=== PATIENT | female | born 1980 | race Caucasian/White ===

== ENCOUNTER 2021-07-09 06:44 | Day surgery (SDC) | payer MEDICAID, SELFPAY ==
[~2021-07-09] VITALS: Ht 160 cm; Wt 61.2 kg
[2021-07-09 07:34] LABS: HCG,QUAL RESULT NEGATIVE (NEGATIVE)
[2021-07-09 12:40] VITALS: BP_SYST 128
== END 2021-07-09 10:40 | disposition home or self-care (01) ==
LOC: SDS 06:44 → SMU 06:45 → SDS 10:40
PROVIDERS: ATTEND Internal Medicine
DX: R19.4 Change in bowel habit (principal); I10 Essential (primary) hypertension; Z79.899 Other long term (current) drug therapy; K64.8 Other hemorrhoids; Z20.822 Contact with and (suspected) exposure to COVID-19
CPT/HCPCS: 36415; 45378; 84703; 87426; 99152; 99153; G0378; U0003